=== PATIENT | female | born 1945 | race Caucasian/White ===

== ENCOUNTER 2016-12-03 08:04 | Inpatient (IN) | payer OTHER ==
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
[2016-12-03] MEDS ORDERED: fentaNYL 100 MCG/2 ML INJ IVP ONE (09:01)
[2016-12-03 09:29] LABS: % IMMATURE GRANULYOCYTES 1.1 % (0.0-1.1); ADD DIFF? NO; ADD MORPH? NO; ADD SCAN? NO; ATYPICAL LYMPHOCYTE FLAG 10 (0-99); FRAGMENT RBC FLAG 10 (0-99); HEMATOCRIT 37.3 % (38.0-47.0); HEMOGLOBIN 12.1 g/dL (12.6-16.3); LEFT SHIFT FLG 0 (0-99); LIPEMIA HEMOLYSIS FLAG 80 (0-99); MEAN CELL HEMOGLOBIN 32.3 pg (27.9-34.1); MEAN CELL HEMOGLOBIN CONCENTR. 32.4 g/dL (32.4-36.7); MEAN CELL VOLUME 99.5 fL (81.5-99.8); MEAN PLATELET VOLUME 10.7 fL (8.7-11.7); PLATELET CLUMPS FLAG 0 (0-99); PLATELET COUNT 209 10^3/uL (150-400); RED BLOOD CELL COUNT 3.75 10^6/uL (4.18-5.33); RED CELL DISTRIBUTION WIDTH 15.8 % (11.5-15.2)
[2016-12-03 09:39] LABS: ANION GAP 10 mEq/L (8-16); CALCIUM 9.2 mg/dL (8.5-10.4); CARBON DIOXIDE 18 mEq/l (22-31); CHLORIDE 115 mEq/L (97-110); CREATININE 1.1 mg/dL (0.6-1.0); GLOMERULAR FILTRATION RATE 49; GLUCOSE 95 mg/dL (70-100); POTASSIUM 3.9 mEq/L (3.5-5.2); SODIUM 143 mEq/L (134-144)
[2016-12-03] MEDS ORDERED: NS 500 ML IV ONE (09:49)
--- NOTE | 2016-12-03 11:14 | CPEKG ---
Heart Rate: 77 RR Interval: 779 P-R Interval: 168 QRSD Interval: 78 QT Interval: 352 QTC Interval: 399 P [place]: 71 QRS [place]: 8 T Wave [place]: 39 EKG Severity - NORMAL ECG - EKG Impression: SINUS RHYTHM Electronically Signed By: Johny Duke 03-Dec-2016 12:55:39
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
[2016-12-03] MEDS: oxyCODONE IR 5 MG TAB PO PRN (13:11)
[2016-12-03] MEDS ORDERED: SKIN ADHESIVE (DERMABOND) 1 EACH TP ONE (14:46)
[2016-12-03] MEDS ORDERED: BUPIVACAINE/EPI 0.5% 30 ML SDV ONE (14:46)
[2016-12-03] MEDS ORDERED: CEFAZOLIN 1 GM/DEXTROSE/50 ML BAG IV ONE (15:41)
[2016-12-03] MEDS ORDERED: MIDAZOLAM 2 MG/2 ML VIAL ONE (15:44)
[2016-12-03] MEDS ORDERED: fentaNYL 100 MCG/2 ML INJ ONE ×2 (15:47→17:09)
[2016-12-03] MEDS ORDERED: DEXAMETHASONE 4 MG/ML VIAL ONE (15:47)
[2016-12-03] MEDS ORDERED: LIDOCAINE 2% 5 ML SDV ONE (15:47)
[2016-12-03] MEDS ORDERED: PROPOFOL 200 MG/20 ML VIAL ONE (15:47)
[2016-12-03] MEDS ORDERED: ONDANSETRON 4 MG/2 ML VIAL ONE (15:47)
[2016-12-03] MEDS ORDERED: ROCURONIUM 50 MG/5 ML VIAL ONE (15:47)
[2016-12-03] MEDS ORDERED: PHENYLEPHRINE HCL 100 MCG/ML SYR ONE (16:10)
[2016-12-03] MEDS ORDERED: PHENYLEPHRINE 10 MG/ML SDV ONE (16:21)
--- NOTE | 2016-12-03 16:59 | POSTOPPROG ---
Post Op Note Date of Operation: 12/03/16 Surgeon: Cecil Garrett Anesthesia: GET(General Endotracheal) Pre-op Diagnosis: L fem neck fx Post-op Diagnosis: same Procedure: Perc screw fixation L fem neck fx Inf/Abcess present in the surg proc area at time of surgery?: No EBL: Minimal
[2016-12-03] MEDS ORDERED: TEMAZEPAM 15 MG CAP PO PRN (17:00)
[2016-12-03] MEDS ORDERED: PROMETHAZINE HCL 25 MG/ML INJ IVP PRN (17:00)
[2016-12-03] MEDS ORDERED: HYDROCODONE/APAP 5/325 TAB PO PRN (17:00)
[2016-12-03] MEDS ORDERED: OXYCODONE/APAP 5/325 TAB PO PRN (17:00)
[2016-12-03] MEDS ORDERED: ONDANSETRON 4 MG/2 ML VIAL IVP PRN (17:00)
[2016-12-03] MEDS ORDERED: D5W 1/2 NS W/ 20 KCl/L 1,000 ML IV SCH (17:00)
[2016-12-03] MEDS ORDERED: morphINE PCA 30 MG/30 ML PCA IV PRN (17:03)
[2016-12-03] MEDS ORDERED: NALOXONE HCL 0.4 MG/ML INJ IVP PRN (17:03)
--- NOTE | 2016-12-03 18:23 | GOP ---
DATE OF OPERATION: 12/03/2016 SURGEON: Cecil Garrett MD ANESTHESIA: General. PREOPERATIVE DIAGNOSIS: Left femoral neck fracture. POSTOPERATIVE DIAGNOSIS: Left femoral neck fracture. PROCEDURE PERFORMED: 1. Closed reduction, percutaneous screw fixation left femoral neck fracture. 2. Intraoperative use of fluoroscopy. FINDINGS: ESTIMATED BLOOD LOSS: Negligible. INDICATIONS: Patient is a 71-year-old who sustained a fall on the day of surgery resulting in a lef t femoral neck fracture. After thorough discussion with the patient regarding operative and nonoper ative treatment options and specific operative options, including screw fixation versus arthroplasty , the patient elected to proceed with screw fixation. The patient acknowledged she understood the p otential risks of the operation, including, but not limited to, bleeding, infection, neurovascular d amage, loss of limb function, malunion, nonunion, avascular necrosis, failure resulting in total hip arthroplasty, and anesthetic risks. She acknowledged she understood the potential risks, planned p rocedure and postoperative plan well and had all questions answered prior to surgery. She gave her consent for the operative procedure. DESCRIPTION OF PROCEDURE: The patient was brought in the operative room after IV antibiotics were a dministered. She was placed in a supine position where general anesthetic was administered. She wa s then transferred to the radiolucent traction table with the left leg placed in a well-padded tract ion boot, and the right leg placed in a well-padded well leg miller. A gentle reduction maneuver wa s performed with gentle distraction and inward rotation. AP and lateral fluoroscopic views confirme d anatomic reduction of the fracture. The left thigh and hip was prepped and draped in standard bony rile fashion. Under fluoroscopic guidance, the location of the starting point for the inferolateral screws was con firmed. A small incision was made along the lateral aspect. The Guide pins from the 7.3 mm cannula leland screw set were utilized. An initial pin was placed inferior in the neck and posterior. A 2nd p in was placed above this superiorly and anteriorly. A 3rd pin was placed more superiorly in a more transverse fashion along the superior aspect of the femoral neck and not parallel to the other screw s as a means for hopefully preventing fulcrum collapse at the fracture site. Fluoroscopic views con firmed an optimal K-wire pin fixation. Appropriate length Synthes 7.3 mm screws with 16 mm heads we re then placed. Screw position was confirmed fluoroscopically to be optimal. Each of the screws ga ined favorable compression. The guide pins were removed, and wounds were closed. The subcutaneous tissue was closed with 3-0 Vicryl suture in an interrupted fashion. The skin was closed with Dermab ond. The wounds were dressed with sterile Adaptic, 4 x 4, and OpSite. Patient tolerated the proced ure well and was taken to the recovery room, extubated, in stable condition postoperatively. All sp onge, needle, and instrument counts were reported as being correct. DRAINS: None. COMPLICATIONS: None. PLAN: The patient will be admitted for medical management and gait training. Should be 25 pounds w eightbearing on her operative extremity. /[id number]/MODL
[2016-12-03] MEDS ORDERED: NON-FORMULARY NEW DRUG (Simvastatin [Simvastatin] 40 MG) PO SCH (21:00)
[2016-12-03] MEDS: ATORVASTATIN CALCIUM 20 MG TAB PO SCH (21:08)
[2016-12-04] MEDS: LEVOTHYROXINE 75 MCG TAB PO SCH (05:39)
[2016-12-04] MEDS: oxyCODONE IR 5 MG TAB PO PRN ×3 (07:50→21:17)
[2016-12-04] MEDS: ASPIRIN 81 MG CHEWABLE TAB PO SCH (08:18)
[2016-12-04] MEDS: ALLOPURINOL 300 MG TAB PO SCH (08:18)
[2016-12-04] MEDS: ENOXAPARIN 40 MG/0.4 ML SYR SC SCH (08:18)
--- NOTE | 2016-12-04 11:58 | SOAPPROG ---
SOAP Progress Note Assessment/Plan: Assessment: L Fem neck fx Minimal pain progressing with PT Faizan po min pain with hip ROM Dressing intact Limb lengths/rotation equal Plan: OOB/PT Probable D/C tomorrow 12/04/16 11:56 Objective: Vital Signs Temp Pulse Resp BP Pulse Ox 36.6 C 87 16 113/68 93 12/04/16 11:44 12/04/16 11:44 12/04/16 11:44 12/04/16 11:44 12/04/16 11:44 12/03/16 12/04/16 12/05/16 05:59 05:59 05:59 Intake Total 1400 Output Total 2350 Balance -950 ICD10 Worksheet Patient Problems: Problems Problem Status Onset Hip fracture Acute
[2016-12-04] MEDS ORDERED: LACTULOSE 20 GM/30 ML UDCUP PO PRN (16:20)
[2016-12-04] MEDS ORDERED: MAGNESIUM HYDROXIDE 30 ML UDCUP PO PRN (16:20)
[2016-12-04] MEDS ORDERED: POLYETHYLENE GLYCOL 3350 17 GM PKT PO PRN (16:20)
[2016-12-04] MEDS ORDERED: BISACODYL 10 MG SUPP PR PRN (16:20)
[2016-12-04] MEDS: SENNOSIDES/DOCUSATE SODIUM TAB PO SCH (20:55)
[2016-12-04] MEDS: ATORVASTATIN CALCIUM 20 MG TAB PO SCH (20:55)
[2016-12-05] MEDS: LEVOTHYROXINE 75 MCG TAB PO SCH (05:55)
--- NOTE | 2016-12-05 06:15 | SOAPPROG ---
SOAP Progress Note Assessment/Plan: Assessment: L Fem neck fx Minimal pain progressing with PT Faizan po min pain with hip ROM Dressing intact Limb lengths/rotation equal Plan: OOB/PT Probable D/C tomorrow 12/04/16 11:56 12/05/16 06:14 Minimal pain ambulating with PT Faizan diet + U/O R thigh dressing intact, no D/C NV Unchanged Probable D/C home today Objective: Vital Signs Temp Pulse Resp BP Pulse Ox 36.4 C 83 20 93/52 L 98 12/04/16 23:34 12/04/16 23:34 12/04/16 23:34 12/04/16 23:34 12/04/16 23:34 12/04/16 12/05/16 12/06/16 05:59 05:59 05:59 Intake Total 1400 550 Output Total 2350 400 Balance -950 150 ICD10 Worksheet Patient Problems: Problems Problem Status Onset Hip fracture Acute
[2016-12-05] MEDS: oxyCODONE IR 5 MG TAB PO PRN ×2 (07:57→12:52)
[2016-12-05] MEDS: SENNOSIDES/DOCUSATE SODIUM TAB PO SCH (07:59)
[2016-12-05] MEDS: ALLOPURINOL 300 MG TAB PO SCH (07:59)
[2016-12-05] MEDS: ENOXAPARIN 40 MG/0.4 ML SYR SC SCH (07:59)
[2016-12-05] MEDS: ASPIRIN 81 MG CHEWABLE TAB PO SCH (07:59)
[2016-12-05 08:10] VITALS: BP 94/72; PULSE 81; RESP 15; TEMP 98; O2SAT 94
== END 2016-12-05 15:27 | disposition home or self-care (01) | DRG 482 ==
LOC: F3N 09:56
PROVIDERS: ADMIT Orthopaedic Surgery Foot and Ankle Surgery; ATTEND Orthopaedic Surgery Foot and Ankle Surgery
PROC: BQ14ZZZ Fluoroscopy of Left Femur (ICD-10-PCS; principal; 2016-12-03 15:55)
PROC: 0QS734Z Reposition Left Upper Femur with Internal Fixation Device, Percutaneous Approach (ICD-10-PCS; principal; 2016-12-03 15:55)
DX: S72.002A Fracture of unspecified part of neck of left femur, initial encounter for closed fracture (principal); M81.0 Age-related osteoporosis without current pathological fracture; E03.9 Hypothyroidism, unspecified; V78.1XXA Passenger on bus injured in noncollision transport accident in nontraffic accident, initial encounter
CPT/HCPCS: 96374; 97116-GP; 97161-GP; 97165-GO; 97530-GP; 97535-GO; C1713; C1769; G8978-GP-CJ; G8979-GP-CI; G8980-GP-CI; G8987-GO-CK; G8988-GO-CI; J0690; J1100; J1650; J2250; J2370; J2405; J2704; J3010

== ENCOUNTER 2017-10-11 09:15 | Inpatient (IN) | payer OTHER ==
[~2017-10-11 09:15] MED LIST: ROPIVACAINE 0.2% 80 MG, EPINEPHrine 0.2 MG, KETOROLAC TROMETHAMINE 30 MG in SYRINGE 0 ML IU ONE; TRANEXAMIC ACID 3,000 MG in NS 50 ML IRR ONE; TRANEXAMIC ACID 3,000 MG/50 ML BAG IRR ONE
[2017-10-11] MEDS ORDERED: ceFAZolin 2 GM/SWFI 2 GM/20 ML SYR IVP ONE (11:17)
[2017-10-11] MEDS ORDERED: FAMOTIDINE 20 MG TAB PO ONE (11:17)
[2017-10-11] MEDS ORDERED: DEXAMETHASONE 4 MG/ML VIAL IVP ONE (11:17)
[2017-10-11] MEDS ORDERED: ACETAMINOPHEN 325 MG TAB PO ONE (11:17)
[2017-10-11] MEDS ORDERED: LIDOCAINE 1% 2 ML INJ ID PRN (11:22)
[2017-10-11] MEDS ORDERED: LR 1,000 ML IV ONE (11:22)
--- NOTE | 2017-10-11 11:27 | PDHPUP ---
History & Physical Update H&P update statement: This history and physical update is based on an assessment of the patient which was completed after admission or registration (within 24 hours), but prior to the surgery/procedure. H&P update: H&P reviewed & patient examined, no change in patient's condition since H&P completed
--- NOTE | 2017-10-11 12:19 | PDANEPAE ---
ANE History of Present Illness 72 year old female w/ PMHx of PATTI (does not utilize CPAP), hypothyroidism, migraine headaches, gout and OA presents for left total hip arthroplasty. ANE Past Medical History - Cardiovascular History Hx Hypertension: No Hx Arrhythmias: No Hx Chest Pain: No Hx Coronary Artery / Peripheral Vascular Disease: No Hx CHF / Valvular Disease: No Hx Palpitations: No - Pulmonary History Hx COPD: No Hx Asthma/Reactive Airway Disease: No Hx Recent Upper Respiratory Infection: No Hx Oxygen in Use at Home: No Hx Sleep Apnea: Yes Sleep Apnea Screening Result - Last Documented: Positive Pulmonary History Comment: PATTI haven't used CPAP 1-2 years- does well without it. - Neurologic History Hx Cerebrovascular Accident: No Hx Seizures: No Hx Dementia: No Neurologic History Comment: remote hx migraines - Endocrine History Hx Diabetes: No Endocrine History Comment: hypothyroid-Alexander's - Renal History Hx Renal Disorders: No - Liver History Hx Hepatic Disorders: No - Neurological & Psychiatric Hx Hx Neurological and Psychiatric Disorders: No - Cancer History Hx Cancer: No - Congenital Disorder History Hx Congenital Disorders: No - GI History Hx Gastrointestinal Disorders: No - Other Health History Other Health History: allopurinol for gout. tears for eye dryness. OA L hip - Chronic Pain History Chronic Pain: Yes (L hip) - Surgical History Prior Surgeries: L hip ORIF 12-05-16. hysterectomy. hernia repair ANE Review of Systems Review of systems is: negative Review of Systems: - Exercise capacity Exercise capacity: >=4 METS METS (RN): 4 METS ANE Patient History - Allergies Allergies/Adverse Reactions: codeine Allergy (Verified 09/26/17 11:35) Rash - Home Medications Home medications: home medication list seen and reviewed Home Medications: Allopurinol [Allopurinol 300 MG (RX)] 300 mg PO DAILY 12/03/16 [Last Taken 1 Week Ago ~10/04/17] Aspirin [Aspirin 81mg (*)] 81 mg PO DAILY 12/03/16 [Last Taken 2 Weeks Ago ~] Levothyroxine [Synthroid 75 mcg (*)] 75 mcg PO DAILY06 12/03/16 [Last Taken 12/24 07:00] Simvastatin 40 mg PO HS 12/03/16 [Last Taken 10/10/17 20:00] Carboxymethylcellulose 1% [Refresh Celluvisc (*)] 1 drop EACHEYE DAILY PRN 12/19 /17 [Last Taken 10/11/17 07:00] Cholecalciferol Vit D3 [Vitamin D3 2000 units tab (OTC)] 2,000 units PO DAILY [Last Taken 2 Weeks Ago ~09/27/17] HYDROcodone/APAP 10/325 [[place] 10/325 (*)] 0.5 each PO HS PRN 09/26/17 [Last Taken 10/10/17 12:00] Ibuprofen [Motrin (*)] 200 mg PO DAILY PRN 09/26/17 [Last Taken 2 Weeks Ago ~] Ferrous Sulfate [Ferrous Sulf 325 MG (*)] 325 mg PO DAILY 10/11/17 [Last Taken 10/10/17 20:00] - NPO status NPO Status: no food or drink >8 hours NPO Since - Liquids (Date): 10/10/17 NPO Since - Liquids (Time): 11:59 NPO Since - Solids (Date): 10/10/17 NPO Since - Solids (Time): 21:00 - Anes Hx Anes Hx: no prior problems - Smoking Hx Smoking Status: Never smoked Marijuana use: No - Alcohol Use Alcohol Use: Rarely - Family Anes Hx Family Anes Hx: neg - N/A ANE Labs/Vital Signs - Vital Signs Vital Signs: reviewed preoperatively; see RN documention for details Blood Pressure: 143/91 Heart Rate: 72 Respiratory Rate: 16 O2 Sat (%): 97 Height: 162.56 cm Weight: 64.41 kg ANE Physical Exam - Airway Mallampati Score: Class 2 Mouth exam: normal dental/mouth exam - Pulmonary Pulmonary: no respiratory distress - Cardiovascular Cardiovascular: regular rate and rhythym - ASA Status ASA Status: II ANE Anesthesia Plan Anesthesia Plan: GA w LMA, MAC, spinal Total IV Anesthesia: No
[2017-10-11] MEDS ORDERED: MIDAZOLAM 2 MG/2 ML VIAL IVP ONE (13:06)
[2017-10-11] MEDS ORDERED: MIDAZOLAM 2 MG/2 ML VIAL ONE (13:08)
[2017-10-11] MEDS ORDERED: PROPOFOL/EMULSION 500 MG/50 ML BOTTLE IV ONE (13:11)
[2017-10-11] MEDS ORDERED: fentaNYL 100 MCG/2 ML INJ ONE ×4 (13:42→15:55)
[2017-10-11] MEDS ORDERED: PROMETHAZINE HCL 25 MG SUPPR PR PRN (14:05)
[2017-10-11] MEDS ORDERED: LACTULOSE 20 GM/30 ML UDCUP PO PRN (14:05)
[2017-10-11] MEDS ORDERED: CYCLOBENZAPRINE 10 MG TAB PO PRN (14:05)
[2017-10-11] MEDS ORDERED: ONDANSETRON DISINTEGRATING 4 MG TAB PO PRN (14:05)
[2017-10-11] MEDS ORDERED: ONDANSETRON 4 MG/2 ML VIAL IVP PRN ×2 (14:05→14:15)
[2017-10-11] MEDS ORDERED: PROMETHAZINE HCL 25 MG/ML INJ IVP PRN (14:05)
[2017-10-11] MEDS ORDERED: MAGNESIUM HYDROXIDE 30 ML UDCUP PO PRN (14:05)
[2017-10-11] MEDS ORDERED: BISACODYL 10 MG SUPP PR PRN (14:05)
[2017-10-11] MEDS ORDERED: METOCLOPRAMIDE 10 MG/2 ML VIAL IVP PRN (14:05)
[2017-10-11] MEDS ORDERED: TEMAZEPAM 15 MG CAP PO PRN (14:05)
[2017-10-11] MEDS ORDERED: POLYETHYLENE GLYCOL 3350 17 GM PKT PO PRN (14:05)
[2017-10-11] MEDS ORDERED: DIPHENOXYLATE/ATROPINE LOMOTIL 1 TAB PO PRN (14:05)
[2017-10-11] MEDS ORDERED: diphenhydrAMINE 25 MG CAP PO PRN (14:05)
[2017-10-11] MEDS ORDERED: NON-FORMULARY NEW DRUG (Carboxymethylcellulose 1% [Refresh Celluvisc (*)] 1 DROP) EACHEYE PRN (14:06)
[2017-10-11] MEDS ORDERED: LR 500 ML IV PRN (14:15)
[2017-10-11] MEDS ORDERED: LABETALOL HCL 5 MG/ML 20 ML MDV IVP PRN (14:15)
[2017-10-11] MEDS ORDERED: NALOXONE HCL 0.4 MG/ML INJ IVP PRN (14:15)
[2017-10-11] MEDS ORDERED: PHENYLEPHRINE HCL 100 MCG/ML SYR IVP PRN (14:15)
[2017-10-11] MEDS ORDERED: epHEDrine SULFATE 10 MG/ML SYR IVP PRN (14:15)
[2017-10-11] MEDS ORDERED: ROCURONIUM 50 MG/5 ML VIAL ONE ×2 (14:18)
[2017-10-11] MEDS ORDERED: LR 1,000 ML IV SCH (14:30)
[2017-10-11] MEDS ORDERED: CARBOXYMETHYLCELLULOSE 1% 0.4 ML DROPERETTE EACHEYE PRN (14:50)
[2017-10-11] MEDS ORDERED: PROPOFOL 200 MG/20 ML VIAL ONE (15:00)
--- NOTE | 2017-10-11 15:46 | POSTOPPROG ---
Post Op Note Date of Operation: 10/11/17 Surgeon: Johnathan Bradford Assistant Manager: Gwen Bradford PAc Anesthesiologist: Jeet Anesthesia: LMA, Spinal Pre-op Diagnosis: L hipfemoral neck non union Post-op Diagnosis: same Indication: pain Procedure: conversion of hip surgery to L DION Findings: failed femoral neck ORIF Inf/Abcess present in the surg proc area at time of surgery?: No EBL: 500-1000
[2017-10-11] MEDS ORDERED: HYDROmorphONE/DILAUDID 1 MG/ML INJ ONE (15:55)
[2017-10-11] MEDS: fentaNYL 100 MCG/2 ML INJ IVP PRN ×2 (16:01→16:44)
[2017-10-11] MEDS: HYDROmorphONE/DILAUDID 1 MG/ML INJ IVP PRN ×3 (16:02→16:44)
[2017-10-11] MEDS: ACETAMINOPHEN 325 MG TAB PO SCH (17:55)
--- NOTE | 2017-10-11 18:26 | POSTANESTH ---
Post Anesthetic Evaluation Cardiovascular Status: Normal, Stable, Similar to Pre-Op Cond Respiratory Status: Normal, Stable, Similar to Pre-op Cond. Level of Consciousness/Mental Status: Can Participate in Eval, Alert and Oriented Pain Control: Adequate, Prn Tx Ordered Nausea/Vomiting Control: Adequate, Prn Tx Ordered Complications Possibly Related to Anesthesia: None Noted
[2017-10-11] MEDS ORDERED: ATORVASTATIN CALCIUM 20 MG TAB PO SCH (21:00)
[2017-10-11] MEDS ORDERED: NON-FORMULARY NEW DRUG (Simvastatin [Simvastatin] 40 MG) PO SCH (21:00)
[2017-10-11] MEDS: SENNOSIDES/DOCUSATE SODIUM TAB PO SCH (21:30)
[2017-10-11] MEDS: oxyCODONE IR 5 MG TAB PO PRN (21:30)
[2017-10-11] MEDS: ASPIRIN 81 MG CHEWABLE TAB PO SCH (21:30)
[2017-10-11] MEDS: FAMOTIDINE 20 MG TAB PO SCH (21:31)
[2017-10-11] MEDS: ceFAZolin 2 GM/DEXTROSE 100 ML IV SCH (22:18)
[2017-10-12] MEDS: ACETAMINOPHEN 325 MG TAB PO SCH ×3 (00:28→11:28)
--- NOTE | 2017-10-12 05:01 | GOP ---
[f rep st] OPERATIVE REPORT DATE OF OPERATION: 10/11/2017 SURGEON: Zion Bradford MD CABLE TELEVISION TECHNICIAN: Gwen Bradford PA-C PREOPERATIVE DIAGNOSIS: Left hip failed femoral neck fracture. POSTOPERATIVE DIAGNOSIS: Left hip failed femoral neck fracture. PROCEDURE PERFORMED: Conversion of prior left hip surgery to left total hip replacement. FINDINGS: ESTIMATED BLOOD LOSS: 500 cc. INDICATIONS: The patient has progressively worsening arthritis of the hip which has failed medical m anagement. The patient understands the treatment options including continued non-operative care and has selected surgical intervention. The patient has decided to undergo total hip arthroplasty via th e direct anterior approach, understanding the risks of the procedure including, but not limited to, n eurovascular injury, infection, persistent pain, component wear and loosening, deep venous thrombosis , pulmonary embolism, limb length inequality, hip instability (including dislocation), and intra-oper ative fractures. DESCRIPTION OF PROCEDURE: After proper identification of the patient including verification and geremias ing the surgical site, the patient was brought to the operating room and placed in the supine positio n. All bony prominences were well padded. Anesthesia was induced without complication and intraveno us prophylactic antibiotics were administered prior to skin incision. Prior to proceeding with hip replacement, prior screws used for percutaneous fixation were removed fr om lateral incision. These were closed and placed in a sterile dressing as well. A prophylactic Bill Orbotix-Miles cable was placed around the calcar prophylactically to help prevent fracture. The operative leg was placed in the Trumpf Arch table extension and the well leg in a Yellofin leg ho lder. The patient was prepped and draped in the usual sterile fashion. The C-arm was draped for int ra-operative fluoroscopy to check acetabular position, femoral component position including leg lengt h and femoral offset. Attention was then drawn to surgical exposure of the hip. An incision was made with a #10 Bard [place]ajas r blade starting 3 cm lateral and 3 cm distal to the anterior superior iliac spine measuring 8-10 cm and coursing distally toward the greater trochanter. The skin and subcutaneous tissues were divided sharply down to the fascia rowan. The fascia rowan was incised in line with the skin incision exposing the underlying tensor fascia rowan muscle. The muscle was bluntly elevated from the fascia and the f irst extracapsular Cobra retractor was placed laterally at the junction of the superior femoral neck and greater trochanter. The lateral femoral circumflex vessels were identified, cauterized, and divi ded with the Aquamantys bipolar cautery. The deep investing fascia of the TFL was divided to allow p silverio mobilization of the muscle preventing damage during the retraction. The reflected head of the rectus femoris muscle was elevated off the anterior hip capsule and a medial Cobra retractor was plac ed just proximal to the lesser trochanter. The anterior capsulotomy was made sharply from the superolateral acetabulum to the saddle junction of the superior femoral neck and greater trochanter, then coursing inferomedial towards the lesser troc hanter. The retractors were then placed in the intracapsular position for femoral neck osteotomy. C orresponding to pre-operative templating, the osteotomy was made with the oscillating saw carefully p rotecting the greater trochanter and soft tissues. The femoral head was removed from the acetabulum with a corkscrew and confirmed to be severely arthritic with exposed bone, deformity and osteophytes. Similar findings were confirmed in the acetabulum. The Arch table extension was then placed in 40 degrees external rotation. Attention was then drawn to the acetabular preparation. After placement of the anterior and posterio r Cobra retractors outside the labrum and intracapsular, the circumferential labrum was removed sharp ly. The foveal contents were then removed and hemostasis obtained with cautery. The first reamer selected was sized using the removed femoral head. Reaming began with medialization and then commenced in 2 mm increments at 45 degrees of abduction and 15 degrees of anteversion using fluoroscopic navigation. Reaming ceased 1 mm less than the definitive acetabular component and cristina esponded to the pre-operative templating. The final acetabular component was inserted using fluorosc opy to achieve proper orientation yielding excellent purchase and stability in the acetabulum. The f inal acetabular liner was then placed and its seating confirmed. Attention was then turned to the femur. The Arch table extension was placed in extension and adducti on, delivering the osteotomized femoral neck into the wound. A 2-pronged femoral elevator was placed at the calcar and another at the tip of the greater trochanter. The posterolateral capsule was rele ased with cautery allowing mobilization of the femur lateral and anterior for preparation. The exter nal rotators were visualized and preserved. A curette and rongeur were used to open the starting poi nt for broaching. Serial broaching started with the #0 broach and ended with the broach that exhibit ed excellent fit in the proximal femur. A change in pitch during mallet strikes was accompanied by t he inability to advance the broach any further. The trial reduction was performed and fluoroscopic n avigation was utilized to check limb length. Adjustments were made to equalize limb length according ly. After the final trials were accepted they were removed and the wound was copiously lavaged. The femo ral component was seated to the same depth as the final broach and the femoral head was impacted onto the clean trunnion. The hip was then reduced for the final time and once more fluoroscopy was used to check that limb length equality was achieved. The wound was irrigated and closed in layers, the fascia rowan with 2-0 Quill, the subcutaneous tissue with 2-0 Quill, and the skin with Dermabond. Sterile dressings were applied. Final sharps and spon ge counts were accurate. The patient was then transferred to a hospital bed and brought to the [facility] room in stable condition. IMPLANTS: Accolade II, size 5 at 127. Acetabular component a 50 mm Tritanium. The liner is a Tride nt X3, 32 mm. The head is a Biolox Delta, 32 mm +0. /[id number]/MODL
[2017-10-12 05:05] VITALS: TEMP 98
[2017-10-12] MEDS: ceFAZolin 2 GM/DEXTROSE 100 ML IV SCH (05:42)
[2017-10-12] MEDS: oxyCODONE IR 5 MG TAB PO PRN ×2 (05:48→11:29)
[2017-10-12] MEDS ORDERED: LEVOTHYROXINE 75 MCG TAB PO SCH (06:00)
[2017-10-12 07:50] VITALS: BP 92/48; PULSE 80; RESP 16; O2SAT 94
[2017-10-12] MEDS: SENNOSIDES/DOCUSATE SODIUM TAB PO SCH (08:13)
[2017-10-12] MEDS: FAMOTIDINE 20 MG TAB PO SCH (08:13)
[2017-10-12] MEDS: ASPIRIN 81 MG CHEWABLE TAB PO SCH (08:14)
[2017-10-12] MEDS ORDERED: FERROUS SULFATE 325 MG TAB PO SCH (09:00)
[2017-10-12] MEDS ORDERED: FLU VACC QS 2017-18 (3YR+)/PF 0.5 ML SYR (FLUARIX QUAD) IM ONE (10:18)
--- NOTE | 2017-10-12 12:29 | SOAPPROG ---
SOAP Progress Note Assessment/Plan: Assessment: Patient is doing well s/p L DION pain is well controlled on [place] VTE ppx: recommend ASA 81 mg BID anemia: level expected initially postop d/c planning: d/c to home Plan: 10/12/17 12:28 Subjective: Shirley is doing well today, denies SOB, chest pain, N/v Objective: Vital Signs Temp Pulse Resp BP Pulse Ox 36.7 C 80 16 92/48 L 94 10/12/17 07:47 10/12/17 07:47 10/12/17 07:47 10/12/17 07:47 10/12/17 07:47 Laboratory Results 10/12/17 04:58 10/11/17 10/12/17 10/13/17 05:59 05:59 05:59 Intake Total 1650 Output Total 1100 Balance 550 LLE: incision dressing is sandra freeman dry, NVI, +pf/df ICD10 Worksheet Patient Problems: Problems Problem Status Onset Fracture of femur with nonunion Acute Hip fracture Acute
--- NOTE | 2017-10-12 12:53 | ASDISCHSUM ---
Discharge Information Plan Status:Home with No Needs Medically Cleared to Leave: Discharge Date:10/12/2017 12:25 PM CM D/C Disposition:Home, Routine, Self-Care ADT D/C Disposition:Home, Routine, Self-Care Projected Discharge Date:10/12/2017 12:25 PM Transportation at D/C: Discharge Delay Reason: Follow-Up Date:10/12/2017 12:25 PM Discharge Slot: Final Diagnosis: Placement Information Patient Contact Information Contact Name:JARON Relationship: Address:[address] Work Phone: City:[place] Alternate Phone: [facility]/Zip Code:[place] [address] Email: Financial Information Financial Class:Worker's Compensation Primary Plan Desc:[employer] Primary Plan Number:[id number] Secondary Plan Desc:MEDICARE INPATIENT Secondary Plan Number:[id number] Assessment Information Intervention Information
--- NOTE | 2017-10-12 19:19 | GDS ---
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 DISCHARGE DIAGNOSIS: Failed nonunion, left femoral neck fracture. PROCEDURE: Left total hip arthroplasty with hardware removal. VTE PROPHYLAXIS: Recommend aspirin 81 mg twice daily for 4 weeks. BRIEF DESCRIPTION OF HOSPITAL STAY: Patient was admitted for an elective joint arthroplasty. The pa tient tolerated the procedure well and has passed physical therapy. The patient was given appropriat e antibiotic prophylaxis and venous thromboembolism prophylaxis. The patient's pain was well control led on oral pain medication, patient was holding down food, and had urinated. Decision was made to d ischarge the patient. The patient was given post-operative prescriptions pre-operatively. PLAN: Please follow up as scheduled with Dr. Bradford's office in 3 weeks. /[id number]/MODL
== END 2017-10-12 12:25 | disposition home or self-care (01) | DRG 470 ==
LOC: F3N 10:55
PROVIDERS: ADMIT Orthopaedic Surgery; ATTEND Orthopaedic Surgery
PROC: 0SRB04Z Replacement of Left Hip Joint with Ceramic on Polyethylene Synthetic Substitute, Open Approach (ICD-10-PCS; principal; 2017-10-11 13:15)
DX: M16.12 Unilateral primary osteoarthritis, left hip (principal); I10 Essential (primary) hypertension
CPT/HCPCS: 97161-GP; 97165-GO; 97535-GO; C1713; G0008; G8978-GP-CI; G8979-GP-CI; G8980-GP-CI; G8987-GO-CI; G8988-GO-CI; G8989-GO-CI; J0171; J0690; J1100; J1170; J1885; J2250; J2370; J2704; J2795; J3010